=== PATIENT | male | born 1980 | race Caucasian/White ===

== ENCOUNTER 2016-08-08 01:26 | Emergency (ER) | payer SELFPAY ==
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
== END 2016-08-08 03:20 | disposition disaster alternative care site (69) ==
LOC: GACC 01:26
PROC: 0HQ1XZZ Repair Face Skin, External Approach (ICD-10-PCS; principal; 2016-08-08)
DX: S06.0X0A Concussion without loss of consciousness, initial encounter (principal); S01.81XA Laceration without foreign body of other part of head, initial encounter; S61.210A Laceration without foreign body of right index finger without damage to nail, initial encounter; F17.210 Nicotine dependence, cigarettes, uncomplicated; K21.9 Gastro-esophageal reflux disease without esophagitis; Z98.890 Other specified postprocedural states; Z79.899 Other long term (current) drug therapy; Y08.89XA Assault by other specified means, initial encounter
CPT/HCPCS: J2270; J2405